=== PATIENT | female | born 1985 | race Two or more races ===

== ENCOUNTER 2017-08-07 10:08 | Emergency (ER) | payer SELFPAY ==
[~2017-08-07] VITALS: Ht 165.1 cm; Wt 88.0 kg
[2017-08-07 10:33] VITALS: BP 132/81
[2017-08-07 10:58] LABS: BILIRUBIN,URINE NEGATIVE (NEG); GLUCOSE,URINE NEGATIVE (NEG); NITRITE,URINE NEGATIVE (NEG); PH,URINE 6.5; PROTEIN,URINE NEGATIVE (NEG-TRACE); UROBILINOGEN,URINE 0.2 mg/dL (0.2 mg/dL)
[2017-08-07 11:20] LABS: BACTERIA,URINE FEW /HPF (0-FEW); RBC,URINE OCC /HPF (0-2); SQUAMOUS EPITHELIAL CELL,UR MOD /LPF; WBC,URINE OCC /HPF (0-4)
--- NOTE | 2017-08-07 12:07 | RAD ---
Obstetrical ultrasound, 08/07/2017: History: , no heart tones Transabdominal and transvaginal scans were obtained. There is a single intrauterine gestational sac. It contains a yolk sac as well as a pole. The pole measures 10 mm in length compatible with a gestational age of 7-8 weeks. No heart motion is evident. This is abnormal with a pole of this size and indicates a nonviable . The ovaries are within normal limits in size. They contain small follicular cysts. No adnexal mass is seen. No free fluid is evident in the pelvis. IMPRESSION: Nonviable early intrauterine .
[2017-08-07 12:18] LABS: BASO # 0.1 x10^3/uL (0.0-0.2); BASO % 1 % (0-3); EOS % 1 % (0-3); HEMATOCRIT 41.2 % (36.0-47.0); HEMOGLOBIN 13.8 g/dL (12.0-15.5); LYMPH # 2.5 x10^3/uL (1.0-4.8); LYMPH % 25 % (24-48); MEAN CORPUSCULAR HEMOGLOBIN 28 pg (25-35); MEAN CORPUSCULAR HGB CONC 34 g/dL (31-37); MEAN CORPUSCULAR VOLUME 83 fL (79-100); MONO % 5 % (0-9); NEUT % 69 % (31-73); PLATELET COUNT 305 x10^3/uL (140-400); RED BLOOD COUNT 4.98 x10^6/uL (3.50-5.40); RED CELL DISTRIBUTION WIDTH 13.9 % (11.5-14.5)
--- NOTE | 2017-08-07 12:21 | PHYS DOC ---
Past Medical History Past Medical History: No Pertinent History Past Surgical History: No Surgical History Alcohol Use: None Drug Use: None Adult General Chief Complaint Chief Complaint: OTHER COMPLAINTS HPI HPI 32-year-old female presenting to the emergency department today after being in clinic today and not being able to find heart tones. She denies any abdominal pain or vaginal bleeding today. She otherwise is feeling well. Onset today. Location generalized. No alleviating or exacerbating factors present. Review of systems is negative for chest pain shortness of breath abdominal pain nausea vomiting. All other review of systems is negative unless otherwise noted in history of present illness. ED course: 32-year-old female presenting to the emergency department today with reports from clinic of not being able to find heart tones. Vital signs unremarkable. Abdominal exam unremarkable. Ultrasound ordered along with basic blood testing. Abdominal ultrasound shows lack of heart beat. Rh+. Otherwise unremarkable workup. I medicated this information to the family. I discussed the case with Dr. miner our call center support representative who agreed to see the patient in the next few days for follow-up. The patient was then discharged home in stable condition. They were to return if their symptoms worsened or if they were concerned for any reason. [id number] discharge instructions and return precautions were given. Patient's questions were answered to their satisfaction. Patient is comfortable plan. Review of Systems Review of Systems SEE ABOVE. Allergies Allergies Allergies Coded Allergies Type Severity Reaction Last Updated Verified No Known Drug Allergies 08/07/17 No Physical Exam Physical Exam SEE ABOVE Constitutional: Well developed, well nourished, no acute distress, non-toxic appearance. [] HENT: Normocephalic, atraumatic, bilateral external ears normal, oropharynx moist, no oral exudates, nose normal. [] Eyes: PERRLA, EOMI, conjunctiva normal, no discharge. [] Neck: Normal range of motion, no tenderness, supple, no stridor. [] Cardiovascular:Heart rate regular rhythm, no murmur [] Lungs & Thorax: Bilateral breath sounds clear to auscultation [] Abdomen: Bowel sounds normal, soft, no tenderness, no masses, no pulsatile masses. [] Skin: Warm, dry, no erythema, no rash. [] Back: No tenderness, no CVA tenderness. [] Extremities: No tenderness, no cyanosis, no clubbing, ROM intact, no edema. [] Neurologic: Alert and oriented X 3, normal motor function, normal sensory function, no focal deficits noted. [] Psychologic: Affect normal, judgement normal, mood normal. [] Current Patient Data Vital Signs Vital Signs Date Time Temp Pulse Resp B/P (MAP) Pulse Ox O2 Delivery O2 Flow Rate FiO2 08/07/17 10:33 98.3 85 20 97 Room Air 98.3 Lab Values Laboratory Tests Test 08/07/17 10:40 08/07/17 12:00 Urine Collection Type Unknown Urine Color Yellow Urine Clarity Clear Urine pH 6.5 Urine Specific Tornado 1.015 Urine Protein Negative mg/dL (NEG-TRACE) Urine Glucose (UA) Negative mg/dL (NEG) Urine Ketones (Stick) Negative mg/dL (NEG) Urine Blood Small (NEG) Urine Nitrite Negative (NEG) Urine Bilirubin Negative (NEG) Urine Urobilinogen Dipstick 0.2 mg/dL (0.2 mg/dL) Urine Leukocyte Esterase Negative (NEG) Urine RBC Occ /HPF (0-2) Urine WBC Occ /HPF (0-4) Urine Squamous Epithelial Cells Mod /LPF Urine Bacteria Few /HPF (0-FEW) White Blood Count 10.0 x10^3/uL (4.0-11.0) Red Blood Count 4.98 x10^6/uL (3.50-5.40) Hemoglobin 13.8 g/dL (12.0-15.5) Hematocrit 41.2 % (36.0-47.0) Mean Corpuscular Volume 83 fL (79-100) Mean Corpuscular Hemoglobin 28 pg (25-35) Mean Corpuscular Hemoglobin Concent 34 g/dL (31-37) Red Cell Distribution Width 13.9 % (11.5-14.5) Platelet Count 305 x10^3/uL (140-400) Neutrophils (%) (Auto) 69 % (31-73) Lymphocytes (%) (Auto) 25 % (24-48) Monocytes (%) (Auto) 5 % (0-9) Eosinophils (%) (Auto) 1 % (0-3) Basophils (%) (Auto) 1 % (0-3) Neutrophils # (Auto) 6.9 x10^3uL (1.8-7.7) Lymphocytes # (Auto) 2.5 x10^3/uL (1.0-4.8) Monocytes # (Auto) 0.5 x10^3/uL (0.0-1.1) Eosinophils # (Auto) 0.1 x10^3/uL (0.0-0.7) Basophils # (Auto) 0.1 x10^3/uL (0.0-0.2) Sodium Level 137 mmol/L (136-145) Potassium Level 3.5 mmol/L (3.5-5.1) Chloride Level 100 mmol/L (98-107) Carbon Dioxide Level 28 mmol/L (21-32) Anion Gap 9 (6-14) Blood Urea Nitrogen 7 mg/dL (7-20) Creatinine 0.7 mg/dL (0.6-1.0) Estimated GFR (Cockcroft-Gault) 98.3 Glucose Level 92 mg/dL (70-99) Calcium Level 9.3 mg/dL (8.5-10.1) Laboratory Tests 08/07/17 12:00 Laboratory Tests 08/07/17 12:00 EKG EKG [] Radiology/Procedures Radiology/Procedures [] Course & Med Decision Making Course & Med Decision Making Pertinent Labs and Imaging studies reviewed. (See chart for details) [] Dragon Disclaimer Dragon Disclaimer This electronic medical record was generated, in whole or in part, using a voice recognition dictation system. Departure Departure Impression: Primary Impression: Additional Impression: Miscarriage Disposition: 01 HOME, SELF-CARE Condition: STABLE Referrals: NO PCP (PCP) ISAURO MINER Jr, MD Patient Instructions: ABCs of Additional Instructions: Thank you for allowing us to participate in your care today. Followup with dr miner in 1-2 days. Call your Primary Doctor tomorrow and inform them of your visit today. If you do not have a primary care provider you can ask for a list of our primary care providers. Return to the emergency department you have any new or concerning findings. This should be evaluated by the primary care physician and any necessary consulting services for continued management within a few days after discharge. Return to emergency room if you have any new or concerning symptoms including but not limited to fever, chills, nausea, vomiting, intractable pain, any new rashes, chest pain, shortness of air, uncontrolled bleeding, difficulty breathing, and/or vision loss. Problem Qualifiers TAMMY NAIDU MD Aug 07, 2017 12:21
[2017-08-07 12:25] LABS: CALCIUM 9.3 mg/dL (8.5-10.1); CREATININE 0.7 mg/dL (0.6-1.0); GFR 98.3; POTASSIUM 3.5 mmol/L (3.5-5.1)
== END 2017-08-07 13:05 | disposition home or self-care (01) ==
LOC: ER 10:08
DX: O03.9 Complete or unspecified spontaneous abortion without complication (principal)
CPT/HCPCS: 36415; 76805; 76817; 80048; 81001; 84702; 85025; 86901; 99285-25

== ENCOUNTER 2017-08-16 01:58 | Emergency (ER) | payer SELFPAY ==
[~2017-08-16] VITALS: Ht 162.6 cm; Wt 88.0 kg
--- NOTE | 2017-08-16 02:16 | PHYS DOC ---
Past Medical History Past Medical History: No Pertinent History Past Surgical History: No Surgical History Alcohol Use: None Drug Use: None Adult General Chief Complaint Chief Complaint: VAGINAL BLEEDING HPI HPI Patient is a 32 year old female who presents with vaginal bleeding. She is Setswana speaking only and the jail keeper line was used. She was here August 07 and diagnosed with inevitable miscarriage. At that time her ultrasound showed inconsistent dates with a gest sac 7-8 weeks but no heart tones. She is Rh+. Hemoglobin was 13.8 hematocrit 41.2 at that time. She had follow-up arranged with Dr. Chen. She states 3 days ago she started having bleeding but was minimal. 3 hours ago she developed significant increase in her bleeding and pain. She was passing large amounts of clots. Review of Systems Review of Systems All other ROS negative except as noted: Constitutional: Denies fever or chills HENT: Denies nasal congestion or sore throat Respiratory: Denies cough or shortness of breath Cardiovascular: No chest pain GI: Denies abdominal pain, nausea, vomiting, bloody stools or diarrhea : see HPI Current Medications Current Medications Current Medications Medications (Trade) Dose Ordered Sig/Raj Start Time Stop Time Status Last Admin Dose Admin Fentanyl Citrate (Fentanyl 2ml Vial) 100 mcg STK-MED ONCE 08/16/17 02:35 08/16/17 02:36 DC Methylergonovine Maleate (Methergine) 0.2 mg 1X ONCE 08/16/17 03:45 08/16/17 03:46 UNV Ondansetron HCl (Zofran) 4 mg 1X ONCE 08/16/17 03:00 08/16/17 03:01 DC 08/16/17 02:37 4 MG Sodium Chloride 500 ml @ 500 mls/hr 1X ONCE 08/16/17 03:00 08/16/17 03:59 08/16/17 02:38 500 MLS/HR Allergies Allergies Allergies Coded Allergies Type Severity Reaction Last Updated Verified No Known Drug Allergies 08/07/17 No Physical Exam Physical Exam Constitutional: Well developed, well nourished, no acute distress, non-toxic appearance. HENT: Normocephalic, atraumatic, bilateral external ears normal, oropharynx moist Eyes: PERRLA, EOMI, conjunctiva normal, no discharge. Neck: Normal range of motion, no tenderness, supple, no stridor. Cardiovascular:Heart rate regular rhythm, no murmur Lungs & Thorax: Bilateral breath sounds clear to auscultation Abdomen: Bowel sounds normal, soft, no tenderness, no masses, no pulsatile masses. : [employer] Consultant present. External exam normal. There was what appeared to be tissue in the vaginal vault. That was removed and sent to lab. Os is open. Skin: Warm, dry, no erythema, no rash. Extremities: No tenderness, no cyanosis, no clubbing, ROM intact, no edema. Neurologic: Alert and oriented X 3, normal motor function, normal sensory function, no focal deficits noted. Current Patient Data Vital Signs Vital Signs Date Time Temp Pulse Resp B/P (MAP) Pulse Ox O2 Delivery O2 Flow Rate FiO2 08/16/17 02:05 98.1 81 20 127/69 (88) 97 Room Air 98.1 Lab Values Laboratory Tests Test 08/16/17 02:32 White Blood Count 10.4 x10^3/uL (4.0-11.0) Red Blood Count 4.68 x10^6/uL (3.50-5.40) Hemoglobin 13.0 g/dL (12.0-15.5) Hematocrit 38.7 % (36.0-47.0) Mean Corpuscular Volume 83 fL (79-100) Mean Corpuscular Hemoglobin 28 pg (25-35) Mean Corpuscular Hemoglobin Concent 34 g/dL (31-37) Red Cell Distribution Width 13.5 % (11.5-14.5) Platelet Count 282 x10^3/uL (140-400) Neutrophils (%) (Auto) 69 % (31-73) Lymphocytes (%) (Auto) 24 % (24-48) Monocytes (%) (Auto) 5 % (0-9) Eosinophils (%) (Auto) 2 % (0-3) Basophils (%) (Auto) 1 % (0-3) Neutrophils # (Auto) 7.1 x10^3uL (1.8-7.7) Lymphocytes # (Auto) 2.5 x10^3/uL (1.0-4.8) Monocytes # (Auto) 0.5 x10^3/uL (0.0-1.1) Eosinophils # (Auto) 0.2 x10^3/uL (0.0-0.7) Basophils # (Auto) 0.1 x10^3/uL (0.0-0.2) Maternal Serum HCG Beta Subunit 8483 mIU/mL (0-5) H Laboratory Tests 08/16/17 02:32 Radiology/Procedures Radiology/Procedures [facility] [address] [place] [address] IMAGING REPORT Signed PATIENT: EZ JOSEPH ACCOUNT: [id number] : 1985 LOCATION: ER AGE: 32 SEX: F EXAM STATUS: REG ER ORD. PHYSICIAN: ARLETH EDUARDO MD REASON: vag bleed; passage of clots; incomplete sab vs complete PROCEDURE: OB <14 WKS W/TV INDICATION: vag bleeding COMPARISON: August 07, 2017 TECHNIQUE: Grayscale and color ultrasound images uterus and adnexa. Transabdominal and transvaginal images obtained. FINDINGS: Uterus: 98 x 56 x 45 mm. Endometrial stripe is heterogenous in nature and measures up to about 18 mm. Right Ovary: 36 x 27 x 20 mm. Left Ovary: 25 x 25 x 19 mm. Vascular flow identified to bilateral ovaries. 18 x 10 mm cystic structure right ovary. Could be a dominant follicle or small cystic lesion. IMPRESSION: 1. The previously identified gestational sac is no longer visualized concerning for demise. 2. There is some heterogeneity and thickening of the endometrial stripe in the lower uterine segment. Could be from blood products within the region but retained products can also have this appearance. Follow-up could be obtained to ensure that there is appropriate thinning of the endometrium. Electronically signed by: Catrachita Smith MD (08/16/2017 3:27 AM) [facility] DICTATED and SIGNED BY: CATRACHITA SMITH MD DATE: 08/16/17 0321 CC: ARLETH EDUARDO MD; NO PCP ~ Course & Med Decision Making Course & Med Decision Making IV NS started; Kept NPO (last po use at 2100 PM). Patient is miscarrying now but will need US to determine if POC remain and patient will require D&C. RH is POSITIVE (from last visit). Checking Quant HCG and H/H. IV Fentanyl and zofran for cramping. US results back-patient with minimal bleeding now. Consult with OB (Dr Pizano) at 0340 AM; call returned at 0343 am. Methergin 0.2 IM and they will follow up in office. Patient given precautions. The POC that were in her vagina were sent to pathology. I have spoken with the patient and/or caregivers. I have explained the patient' s condition, diagnosis and treatment plan based on the information available to me at this time. I have answered the patient's and/or caregiver's questions and addressed any concerns. The patient and/or caregivers have as good an understanding of the patient's diagnosis, condition and treatment plan as can be expected at this point. The patient's condition is stable and appropriate for discharge from the emergency department. The patient will pursue further outpatient evaluation with the primary care physician or other designated or consulting physician as outlined in the discharge instructions. The patient and/or caregivers are agreeable to this plan of care and follow-up instructions have been explained in detail. The patient and/or caregivers have received these instructions in written format and have expressed an understanding of the discharge instructions. The patient and/or caregivers are aware that any significant change in condition or worsening of symptoms should prompt an immediate return to this or the closest emergency department or a call to 911. Discharge instructions were given through the jail keeper phone Dragon Disclaimer Dragon Disclaimer This electronic medical record was generated, in whole or in part, using a voice recognition dictation system. Departure Departure Impression: Primary Impression: Complete miscarriage Disposition: 01 HOME, SELF-CARE Condition: STABLE Referrals: PAM NUÑEZ MD Patient Instructions: Miscarriage, Hgcy-[id number]-[id number] Scripts Ondansetron (ZOFRAN ODT) 4 Mg Tab.rapdis 1 TAB SL Q8HRS, #15 TAB Prov: ARLETH EDUARDO MD 08/16/17 Acetaminophen With Codeine (TYLENOL WITH CODEINE #3 TABLET) 1 Each Tablet 1 TAB PO PRN Q4HRS Y for PAIN, #10 TAB Prov: ARLETH EDUARDO MD 08/16/17 ARLETH EDUARDO MD Aug 16, 2017 02:16
[2017-08-16] MEDS ORDERED: fentaNYL PF VIAL 100 MCG/2 ML VIAL ONE (02:35)
[2017-08-16 02:37] LABS: BASO # 0.1 x10^3/uL (0.0-0.2); BASO % 1 % (0-3); EOS % 2 % (0-3); HEMATOCRIT 38.7 % (36.0-47.0); LYMPH # 2.5 x10^3/uL (1.0-4.8); LYMPH % 24 % (24-48); MEAN CORPUSCULAR HEMOGLOBIN 28 pg (25-35); MEAN CORPUSCULAR HGB CONC 34 g/dL (31-37); MEAN CORPUSCULAR VOLUME 83 fL (79-100); MONO % 5 % (0-9); NEUT % 69 % (31-73); PLATELET COUNT 282 x10^3/uL (140-400); RED BLOOD COUNT 4.68 x10^6/uL (3.50-5.40); RED CELL DISTRIBUTION WIDTH 13.5 % (11.5-14.5); WHITE BLOOD COUNT 10.4 x10^3/uL (4.0-11.0)
[2017-08-16] MEDS ORDERED: ONDANSETRON PF 4 MG/2 ML VIAL. IV ONE (03:00)
[2017-08-16] MEDS ORDERED: IV NORMAL SALINE 1000ML BAG 500 ML IV ONE (03:00)
[2017-08-16] MEDS ORDERED: fentaNYL PF VIAL 100 MCG/2 ML VIAL IV ONE (03:00)
--- NOTE | 2017-08-16 03:30 | RAD ---
INDICATION: vag bleeding COMPARISON: August 07, 2017 TECHNIQUE: Grayscale and color ultrasound images uterus and adnexa. Transabdominal and transvaginal images obtained. FINDINGS: Uterus: 98 x 56 x 45 mm. Endometrial stripe is heterogenous in nature and measures up to about 18 mm. Right Ovary: 36 x 27 x 20 mm. Left Ovary: 25 x 25 x 19 mm. Vascular flow identified to bilateral ovaries. 18 x 10 mm cystic structure right ovary. Could be a dominant follicle or small cystic lesion. IMPRESSION: 1. The previously identified gestational sac is no longer visualized concerning for demise. 2. There is some heterogeneity and thickening of the endometrial stripe in the lower uterine segment. Could be from blood products within the region but retained products can also have this appearance. Follow-up could be obtained to ensure that there is appropriate thinning of the endometrium. Electronically signed by: Papo Ruvalcaba MD (08/16/2017 3:27 AM) [facility]
[2017-08-16] MEDS ORDERED: ONDA4TAB10 SL (03:51)
[2017-08-16] MEDS ORDERED: ACET-704 PO (03:51)
[2017-08-16] MEDS ORDERED: METHYLERGONOVINE MALEATE 0.2 MG/ML VIAL. IM ONE (04:15)
[2017-08-16 04:34] VITALS: BP 104/51
--- NOTE | 2017-08-20 10:57 | PATHOLOGY ---
PATHOLOGY REPORT * * * * * * * * FINAL DIAGNOSIS: Tissue designated "products of conception": - Products of conception, comprised of immature chorionic villi containing nucleated red blood cells and showing focal hydropic degenerative changes and intervillous hemorrhage. (JPM:mml; 08/20/2017) REPORT ELECTRONICALLY SIGNED BY: Elmer Thayer M.D. DATE/TIME: 08/20/2017 10:57 * * * * * * * * GROSS PATHOLOGY: The specimen is received in formalin, designated "Ez Joseph, POC" and consists of a somewhat teardrop shaped segment of dark purple snell tissue, measuring 3.0 x 2.3 x 1.0cm and weighing 3.3 g. The surface of the segment is smooth and glistening. The segment is trisected to reveal spongy, hemorrhagic, dark reddish purple soft tissue. No embryonic tissue is appreciated grossly. The segment is submitted entirely in cassettes A1 and A2. There are also several fragments of blood clot, having an aggregate measurement of 2.5 x 2.0 x 0.8 cm. This is submitted entirely in cassette A3. (JPM; 08/18/17) INITIAL CPT CODE(S): A; 02133 Professional services performed [place] [facility] [place] [address] Technical services performed by [facility] at [address] [place] [address], [facility] [address] [address]. SPECIMEN(S) RECEIVED: A.Products of conception CLINICAL HISTORY: Spontaneous PATIENT: EZ JOSEPH /AGE: 4 1985 (Age: 32) PATIENT #: [id number] ALT CASE #: SPECIMEN COLLECTION DATE: 08/16/2017 SPECIMEN RECEIVED DATE: 08/18/2017 [facility] - [address] [place] [address] - PHONE: [phone] * * * END OF REPORT * * *
== END 2017-08-16 04:39 | disposition home or self-care (01) ==
LOC: ER 01:58
DX: O03.9 Complete or unspecified spontaneous abortion without complication (principal)
CPT/HCPCS: 36415; 76801; 76817; 84702; 85025; 96361; 96372; 96374; 96375; 99285; J2210; J2405; J3010; J7030